=== PATIENT | female | born 1955 | race Two or more races ===

== ENCOUNTER 2018-07-26 09:41 | Emergency (ER) | payer OTHER ==
[~2018-07-26] VITALS: Ht 152.4 cm; Wt 93.0 kg
[2018-07-26 09:43] VITALS: Ht 152.4 cm; Wt 93.0 kg
[2018-07-26 11:15] VITALS: BP 118/70
== END 2018-07-26 11:15 | disposition home or self-care (01) ==
LOC: ED 09:41
DX: M54.5 Low back pain (principal); Z98.890 Other specified postprocedural states; Z90.710 Acquired absence of both cervix and uterus
CPT/HCPCS: J1885